=== PATIENT | female | born 1960 | race Caucasian/White ===

== ENCOUNTER 2018-12-01 18:01 | Emergency (ER) | payer OTHER ==
[~2018-12-01] VITALS: Ht 157.5 cm; Wt 113.4 kg
[~2018-12-01 18:01] MED LIST: CLINDAMYCIN HC300 MG PO; LOSARTAN-HCTZ1 EACH PO; ONE DAILY FOR1 EACH PO; VITAMIN D1000 UNI1 PO
[2018-12-01] MEDS ORDERED: CEPHALEXIN500 MG PO (19:39)
== END 2018-12-01 19:52 | disposition home or self-care (01) ==
LOC: ED 18:01
DX: I10 Essential (primary) hypertension (principal); Z85.820 Personal history of malignant melanoma of skin; Z88.0 Allergy status to penicillin; Z79.899 Other long term (current) drug therapy
CPT/HCPCS: 87880; 99283